=== PATIENT | male | born 1960 | race Hispanic/Latino ===

== ENCOUNTER 2016-12-20 10:22 | Emergency (ER) | payer OTHER ==
[2016-12-20 10:22] VITALS: BMI 32.5
[2016-12-20 10:26] VITALS: TEMP 97.3
[2016-12-20] MEDS ORDERED: Sodium Chloride 0.9% 500 ML IV ONE (11:08)
--- NOTE | 2016-12-20 11:41 | RAD ---
HISTORY: SOB COMPARISON: Chest x-ray performed 04/13/16 TECHNIQUE: Chest, one view. FINDINGS: Examination limited by habitus. LUNGS: Bibasilar atelectasis. Mild pulmonary venous congestion. Please note that chest x-ray has limited sensitivity for the detection of pulmonary masses. PLEURA: No significant pleural effusion identified. No definite pneumothorax . CARDIOVASCULAR: Cardiomegaly. OSSEOUS STRUCTURES: Degenerative changes. VISUALIZED UPPER ABDOMEN: Elevation of the left hemidiaphragm. OTHER FINDINGS: None. IMPRESSION: Bibasilar atelectasis. Mild pulmonary venous congestion. Cardiomegaly.
[2016-12-20 11:58] LABS: BASO # 0.1 K/uL (0.0-0.2); BASO % 1.2 % (0.0-2.0); EOS # 0.1 K/uL (0.0-0.7); EOS % 2.7 % (0.0-4.0); HEMATOCRIT 45.2 % (35.0-51.0); LYMPH # 1.4 K/uL (1.0-4.3); LYMPH % 27.9 % (20.0-40.0); MEAN CELL VOLUME 86.1 fL (80.0-94.0); MEAN CORPUSCULAR HEMOGLOBIN 29.3 pg (27.0-31.0); MEAN PLATELET VOLUME 8.8 fL (7.2-11.7); MONO # 0.4 K/uL (0.0-0.8); MONO % 8.2 % (0.0-10.0); NRBC % 0.4 % (0.0-2.0); RED CELL DISTRIBUTION WIDTH 14.1 % (11.5-14.5)
[2016-12-20 12:01] LABS: RBC URINE 4 /hpf (0-3); URINE BILIRUBIN NEGATIVE (NEGATIVE); URINE BLOOD NEGATIVE (NEGATIVE); URINE COLOR Yellow (YELLOW); URINE GLUCOSE (UA) NORMAL (Normal); URINE KETONE NEGATIVE (NEGATIVE); URINE LEUKOCYTE ESTERASE NEG Leu/uL (Negative); URINE PROTEIN 2+ mg/dL (NEGATIVE); URINE UROBILINOGEN NORMAL mg/dL (0.2-1.0); WBC URINE 2 /hpf (0-5)
[2016-12-20 12:10] LABS: CHLORIDE 96 mmol/L (98-107); POTASSIUM 2.8 mmol/L (3.6-5.2); SODIUM 140 mmol/L (132-148)
[2016-12-20 12:12] LABS: ALB/GLOB RATIO 1.4 (1.0-2.1); AST/SGOT 48 U/L (17-59); BILIRUBIN,TOTAL 1.4 mg/dL (0.2-1.3); CARBON DIOXIDE 31 mmol/L (22-30); GFR AFRICAN-AMERICAN > 60; TOTAL PROTEIN 7.8 g/dL (6.3-8.3)
[2016-12-20 12:13] LABS: ALKALINE PHOSPHATASE 65 U/L (38-126); ALT/SGPT 43 U/L (21-72); BLOOD UREA NITROGEN 13 mg/dL (9-20); CALCIUM 8.7 mg/dl (8.6-10.4); GLUCOSE,RANDOM 87 mg/dL (75-110)
[2016-12-20 12:14] LABS: ALCOHOL SERUM < 10 mg/dl (0-10)
[2016-12-20] MEDS ORDERED: Potassium Chloride 20 mEq ER Tab PO STA (12:49)
--- NOTE | 2016-12-20 12:51 | C.PDOC ---
History Of Present Illness 56-year-old male, PMHx includes Anxiety, CAD, Depression, Deep Vein Thrombosis ( 2 years), Gastrointestinal Ulcer, Hiatal Hernia, Hypertension, and Pulmonary Embolism, presents to the emergency department with complaints of abdominal pain. Patient states she has been experiencing sharp "intense" abdominal pain, associated with nausea and shortness of breath that started yesterday. He states he was taking Eliquis, but stopped two months ago due to "insurance issues" and has been taking daily baby Aspirin instead. In ED, patient reports that symptoms have improved, He denies chest pain, coughing, fever, nausea/ vomiting, diarrhea. Time Seen by Provider: 12/20/16 10:56 Chief Complaint (Nursing): Abdominal Pain History Per: Patient History/Exam Limitations: no limitations Onset/Duration Of Symptoms: Days (1) Current Symptoms Are (Timing): Still Present Severity: Moderate Location Of Pain/Discomfort: Diffuse Past Medical History Reviewed: Historical Data, Nursing Documentation, Vital Signs Vital Signs: Last Vital Signs Temp 97.3 F L 12/20/16 10:25 Pulse 84 12/20/16 13:39 Resp 20 12/20/16 13:39 BP 179/84 H 12/20/16 13:39 Pulse Ox 97 12/20/16 18:03 - Medical History PMH: Anxiety, CAD, Depression, Deep Vein Thrombosis, Gastrointestinal Ulcer, Hiatal Hernia, HTN, Pneumonia, Pulmonary Embolism - [facility] Procedures INFLUENZA VACCINATION (09/04/14) PLICATION OF VENA CAVA (10/08/14) Family History: States: No Known Family Hx - Social History Hx Tobacco Use: No Hx Alcohol Use: No Hx Substance Use: No - Immunization History Hx Tetanus Toxoid Vaccination: No Hx Influenza Vaccination: Yes Hx Pneumococcal Vaccination: Yes Review Of Systems Except As Marked, All Systems Reviewed And Found Negative. Constitutional: Negative for: Fever, Chills Cardiovascular: Negative for: Chest Pain, Palpitations Respiratory: Positive for: Shortness of Breath. Negative for: Cough Gastrointestinal: Positive for: Nausea, Abdominal Pain. Negative for: Vomiting , Diarrhea Genitourinary: Negative for: Dysuria, Frequency, Hematuria Musculoskeletal: Negative for: Back Pain Skin: Negative for: Rash Physical Exam - Physical Exam Appears: Well, Non-toxic, No Acute Distress Skin: Warm, Dry, No Rash Head: Normacephalic Eye(s): bilateral: Normal Inspection Oral Mucosa: Moist Neck: Normal, Normal ROM Cardiovascular: Rhythm Regular, No Murmur Respiratory: Normal Breath Sounds, No Accessory Muscle Use, No Rales, No Rhonchi , No Wheezing Gastrointestinal/Abdominal: Normal Exam, Bowel Sounds, Soft, No Tenderness, No Guarding, No Rebound, Other (Obese) Extremity: Normal ROM, No Pedal Edema, No Calf Tenderness, No Swelling Pulses: Left Dorsalis Pedis: Normal, Right Dorsalis Pedis: Normal Neurological/Psych: Oriented x3 ED Course And Treatment - Laboratory Results Result Diagrams: 12/20/16 11:44 12/20/16 11:44 O2 Sat by Pulse Oximetry: 97 (RA) Pulse Ox Interpretation: Normal - Radiology CXR: Interpreted by Me, Viewed By Me (no infiltrates/effusions) CXR Interpretation: Yes: No Acute Disease - CT Scan/US CT CHEST Other Rad Studies (CT/US): Read By Radiologist, Radiology Report Reviewed CT/US Interpretation: Accession No. : [id number]. Patient Name / ID : PRIYANKA MICHELE / [id number]. Exam Date : 12/20/2016 13:54:20 ( Approved ). Study Comment : Sex / Age : M / 56Y. Creator : Racheal Ahuja MD. Dictator : Racheal Ahuja MD. Hemmer [employer]ch : Client Business Manager : Racheal Ahuja MD. Approver2 : Report Date : 12/20/2016 14:41:38. My Comment : . Angio chest PE protocol. Indication: h/o pe, sob, off eliquis x 2 months. Technique: Contiguous axial images were obtained through the chest with intravenous contrast enhancement. Sagittal and coronal reconstructions were generated and reviewed. This CT exam was performed using 1 or more of the falling dose reduction techniques: Automated exposure control, adjustment of the MAA and/or kV according to patient size, and/or use of iterative reconstruction technique. IV Contrast: 100 mL Visipaque. . Radiation dose ( DLP): 515.40 MGy-cm. Comparison: Chest x-ray performed 12/20/16. Findings: Visualized portions of the inferior thyroid gland appear unremarkable. The mediastinal and hilar vascular structures appear within normal limits. The heart appears within normal limits of size. Coronary artery calcifications. No large central or segmental pulmonary embolus evident. Large left-sided Bochdalek's hernia with associated compressive consolidation. No pleural effusion. No pneumothorax. No suspicious pulmonary nodules measuring greater than 5 mm. Limited visualization of the upper abdomen appears grossly unremarkable. Bilateral gynecomastia. Degenerative changes. Impression: No large central or segmental pulmonary embolus evident. Large left-sided Bochdalek's hernia with associated compressive consolidation. Progress Note: Blood work, CTA Chest, Chest X-Ray and UA/Urine culture ordered. Patient given NS IV bolus, IV pepcid and PO Kdur for hypokalemia Reevaluation Time: 14:55 Reassessment Condition: Improved (On reassessment, patient is resting comfortably, in no current pain or distress. On exam, abdomen is soft and nontender. Blood work significant for hypokalemia, which was given PO. CTA chest (-) for PE, but did show Bochdalek hernia (typically congenital). Patient instructed to follow up with general surgeon within 1 week for further evalation, and with PMD/clinic in 1-2 days for further eval/management of anticoagulants. He understands he should return to ED if symptoms worsen.) Disposition Counseled Patient/Family Regarding: Studies Performed, Diagnosis, Need For Followup, Rx Given - Disposition Referrals: Hi Qiu MD [Staff Provider] - Disposition: HOME/ ROUTINE Disposition Time: 14:55 Condition: STABLE Additional Instructions: FOLLOW UP WITH SURGEON WITHIN 1 WEEK CONTINUE TAKING DAILY ASPIRIN, AND MAKE SURE YOU FOLLOW UP WITH YOUR DOCTOR/ CLINIC FOR FURTHER EVALUATION AND RESTART OF YOUR ELIQUIS RETURN TO ER IF SYMPTOMS WORSEN Prescriptions: Acetaminophen with Codeine [Tylenol with Codeine #3 Tablet] 1 each PO Q6 PRN # 12 tablet PRN Reason: pain Famotidine [Pepcid] 20 mg PO BID PRN #15 tab PRN Reason: abdominal Instructions: Abdominal Pain (ED) Print Language: AMERICAN - POA Present On Arrival: None - Clinical Impression Clinical Impression: Abdominal pain, Bochdalek hernia - Scribe Statement The provider has reviewed the documentation as recorded by the Scribe 56-year-old male, presents to the emergency department with complaints of
[2016-12-20] MEDS ORDERED: Sodium Chloride 0.9% 1,000 ML ONE (12:52)
[2016-12-20] MEDS ORDERED: Iodixanol 320 MG/ML 100 ML BOTTLE IV ONE (13:13)
[2016-12-20] MEDS ORDERED: Potassium Chloride 20 mEq ER Tab PO ONE (13:23)
[2016-12-20 13:27] LABS: INR 1.1
[2016-12-20 13:41] VITALS: BP 179/84; PULSE 84; RESP 20
--- NOTE | 2016-12-20 14:43 | CT ---
Angio chest PE protocol Indication: h/o pe, sob, off eliquis x 2 months Technique: Contiguous axial images were obtained through the chest with intravenous contrast enhancement. Sagittal and coronal reconstructions were generated and reviewed. This CT exam was performed using 1 or more of the falling dose reduction techniques: Automated exposure control, adjustment of the MAA and/or kV according to patient size, and/or use of iterative reconstruction technique. IV Contrast: 100 mL Visipaque Radiation dose (DLP): 515.40 MGy-cm. Comparison: Chest x-ray performed 12/20/16 Findings: Visualized portions of the inferior thyroid gland appear unremarkable. The mediastinal and hilar vascular structures appear within normal limits. The heart appears within normal limits of size. Coronary artery calcifications. No large central or segmental pulmonary embolus evident. Large left-sided Bochdalek's hernia with associated compressive consolidation. No pleural effusion. No pneumothorax. No suspicious pulmonary nodules measuring greater than 5 mm. Limited visualization of the upper abdomen appears grossly unremarkable. Bilateral gynecomastia. Degenerative changes. Impression: No large central or segmental pulmonary embolus evident. Large left-sided Bochdalek's hernia with associated compressive consolidation.
[2016-12-20 14:59] VITALS: O2SAT 97
== END 2016-12-20 15:22 | disposition home or self-care (01) ==
LOC: C.ER 10:22
DX: R10.9 Unspecified abdominal pain (principal); K46.9 Unspecified abdominal hernia without obstruction or gangrene
CPT/HCPCS: 71010; 71275; 80053; 80320; 80324; 80345; 80346; 80349; 80353; 80358; 80361; 81001; 83690; 83992; 85025; 85610; 85730; 87086; 96361; 96374; 99285; J7040; Q9967

== ENCOUNTER 2017-04-19 19:54 | Emergency (ER) | payer MEDICARE, OTHER ==
[2017-04-19 19:54] VITALS: BMI 32.5
[2017-04-19 20:11] VITALS: TEMP 97.9
--- NOTE | 2017-04-19 21:23 | C.PDOC ---
History Of Present Illness 57 year old male with a Hx of depression, anxiety, schizophrenia, HTN, PE, and DVT who presents to the ER with a complaint of chest, ribs, and leg pain since approximately 12:00. Patient describes the pain to his chest as an 7/10 aching/ tightness and the pain to his legs as an 8/10 pressure/cramping pain. Patient states he did not take anything for the pain but admits to cocaine use at 13:00 and ETOH use earlier today. Denies fever, palpitations, diaphoresis, nausea, vomiting, diarrhea, constipation, or change in vision. Time Seen by Provider: 04/19/17 20:22 Chief Complaint (Nursing): Chest Pain History Per: Patient History/Exam Limitations: no limitations Onset/Duration Of Symptoms: Hrs Current Symptoms Are (Timing): Still Present Pain Scale Rating Of: 7 Quality: Aching, Tightness, Pressure Associated Symptoms: denies: Nausea, Dyspnea, Diaphoresis Modifying Factors: None Exacerbating Factors: None Alleviating Factors: None Recent travel outside of the [place]: No Past Medical History Reviewed: Historical Data, Nursing Documentation, Vital Signs Vital Signs: Last Vital Signs Temp 97.9 F 04/19/17 20:06 Pulse 71 04/19/17 23:24 Resp 18 04/19/17 23:24 BP 130/82 04/19/17 23:24 Pulse Ox 95 04/20/17 00:14 - Medical History PMH: Anxiety, CAD, Depression, Deep Vein Thrombosis, Gastrointestinal Ulcer, Hiatal Hernia, HTN, Pneumonia, Pulmonary Embolism - [facility] Procedures INFLUENZA VACCINATION (09/04/14) PLICATION OF VENA CAVA (10/08/14) Family History: States: Unknown Family Hx - Social History Hx Tobacco Use: No Hx Alcohol Use: No Hx Substance Use: No - Immunization History Hx Tetanus Toxoid Vaccination: No Hx Influenza Vaccination: No Hx Pneumococcal Vaccination: No Review Of Systems Constitutional: Negative for: Fever, Sweats Eyes: Negative for: Vision Change Cardiovascular: Negative for: Palpitations Gastrointestinal: Negative for: Nausea, Vomiting, Diarrhea, Constipation Physical Exam - Physical Exam Appears: Non-toxic Skin: Normal Color, Warm, Dry Head: Atraumatic, Normacephalic Oral Mucosa: Moist Chest: Symmetrical, No Tenderness Cardiovascular: Rhythm Regular, No Murmur Respiratory: Normal Breath Sounds, No Rales, No Rhonchi, No Wheezing Gastrointestinal/Abdominal: Bowel Sounds (Active), Soft, No Tenderness Extremity: Normal ROM (x4) Neurological/Psych: Oriented x3, Normal Speech, Normal Cognition ED Course And Treatment - Laboratory Results Result Diagrams: 04/19/17 21:34 04/19/17 21:21 Lab Interpretation: Abnormal (Low K+ and Mg. Patient states that he has been on K+ supplememts but stopped them because of side effects.) O2 Sat by Pulse Oximetry: 95 (Room air) Pulse Ox Interpretation: Normal - Radiology CXR: Interpreted by Me CXR Interpretation: Yes: No Acute Disease, Other (large hiatal hernia with atelectasis LLL) - CT Scan/US CTA Other Rad Studies (CT/US): Read By Radiologist, Radiology Report Reviewed CT/US Interpretation: EXAM: CT Angiography Chest With Intravenous Contrast. CLINICAL HISTORY: 57 years old, male; Pain; Chest pain; Patient HX: 12-20-16; Additional info: Chest pain, elevated d. dimer, HX pe. TECHNIQUE: Axial computed tomographic angiography images of the chest with intravenous contrast using. pulmonary embolism protocol. All CT scans at this facility use one or more dose reduction. techniques, viz.: automated exposure control; ma/kV adjustment per patient size (including targeted. exams where dose is matched to indication; i.e. head); or iterative reconstruction technique. MIP reconstructed images were created and reviewed. Coronal and sagittal reformatted images were created and reviewed. CONTRAST: 100 mL of [id number] administered intravenously. COMPARISON: CT - ANGIO CHEST PE PROTOCOL 12/20/2016 1:54:20 PM. FINDINGS: Limitations: Motion artifact - mild. Pulmonary arteries: No definite pulmonary embolism. Aorta: No aneurysm. No dissection. Lungs: Mild peripheral consolidation LEFT lower lobe. Minimal peripheral consolidation LEFT. upper, RIGHT lower lobes. Pleural space: No significant effusion. No pneumothorax. Heart: Mild cardiomegaly. No significant pericardial effusion. Mediastinum: Large hiatal hernia. Bones/ joints: No acute fracture. No dislocation. Soft tissues: Mild gynecomastia. Lymph nodes: No pathologically enlarged lymph nodes. Liver: Fatty infiltration. IMPRESSION: 1. No definite CT evidence of pulmonary embolism. 2. Peripheral atelectasis. Superimposed pneumonia within LEFT lower lobe not entirely excluded. 3. Incidental/non-acute findings are described above. Progress Note: EKG, blood work, CXR, and urinalysis ordered. Reevaluation Time: 00:17 Reassessment Condition: Improved (Patient sleeping quietly on stretcher.) Disposition - Disposition Disposition: HOME/ ROUTINE Disposition Time: 00:18 Condition: STABLE Additional Instructions: Patient advised to speak with his doctor about stopping the Protonix to avoid persistent hypokalemia. Instructions: Hiatal Hernia (ED), Hypokalemia (ED), Hypomagnesemia (ED) Forms: [employer] (Albanian) - Clinical Impression Clinical Impression: Leg pain, Chest discomfort, Hiatal hernia, Hypokalemia, Hypomagnesemia - Scribe Statement The provider has reviewed the documentation as recorded by the Scribe Nicholas Stauffer All medical record entries made by the Giftyibhubert were at my direction and personally dictated by me. I have reviewed the chart and agree that the record accurately reflects my personal performance of the history, physical exam, medical decision making, and the department course for this patient. I have also personally directed, reviewed, and agree with the discharge instructions and disposition.
[2017-04-19 21:34] LABS: CHLORIDE 103 mmol/L (98-107); SODIUM 144 mmol/L (132-148)
[2017-04-19 21:35] LABS: POTASSIUM 2.7 mmol/L (3.6-5.2)
[2017-04-19 21:36] LABS: GFR AFRICAN-AMERICAN > 60
[2017-04-19 21:37] LABS: ALB/GLOB RATIO 1.4 (1.0-2.1); ALKALINE PHOSPHATASE 47 U/L (38-126); ALT/SGPT 35 U/L (21-72); AST/SGOT 44 U/L (17-59); BILIRUBIN,TOTAL 1.1 mg/dL (0.2-1.3); BLOOD UREA NITROGEN 20 mg/dL (9-20); CALCIUM 9.1 mg/dl (8.6-10.4); CARBON DIOXIDE 23 mmol/L (22-30); GLUCOSE,RANDOM 82 mg/dL (75-110); TOTAL PROTEIN 7.5 g/dL (6.3-8.3)
[2017-04-19 21:38] LABS: ALCOHOL SERUM 75 mg/dl (0-10); MAGNESIUM 1.5 mg/dL (1.6-2.3)
[2017-04-19 21:42] LABS: BASO # 0.1 K/uL (0.0-0.2); BASO % 1.1 % (0.0-2.0); EOS # 0.1 K/uL (0.0-0.7); EOS % 1.4 % (0.0-4.0); HEMATOCRIT 39.1 % (35.0-51.0); LYMPH % 20.4 % (20.0-40.0); MEAN CELL VOLUME 86.8 fL (80.0-94.0); MEAN CORPUSCULAR HEMOGLOBIN 30.2 pg (27.0-31.0); MEAN CORPUSCULAR HGB CONC 34.7 g/dL (33.0-37.0); MEAN PLATELET VOLUME 7.8 fL (7.2-11.7); MONO # 0.8 K/uL (0.0-0.8); MONO % 7.5 % (0.0-10.0); NRBC % 0.2 % (0.0-2.0); RED CELL DISTRIBUTION WIDTH 14.1 % (11.5-14.5)
[2017-04-19] MEDS ORDERED: Potassium Chloride 20 mEq ER Tab PO STA (21:50)
[2017-04-19] MEDS ORDERED: Magnesium Sulfate 1 gm in D5W 1 GM/100 ML BAG IV ONE (21:51)
[2017-04-19] MEDS ORDERED: Potassium Chloride 20 mEq ER Tab PO ONE (22:03)
[2017-04-19] MEDS ORDERED: Magnesium Sulfate 1 gm in D5W 1 GM/100 ML BAG IVPB ONE (22:03)
[2017-04-19] MEDS ORDERED: Iodixanol 320 MG/ML 100 ML BOTTLE IV ONE (22:14)
[2017-04-19 22:28] LABS: RBC URINE < 1 /hpf (0-3); URINE BACTERIA RARE (<OCC); URINE BILIRUBIN NEGATIVE (NEGATIVE); URINE BLOOD NEGATIVE (NEGATIVE); URINE COLOR Yellow (YELLOW); URINE GLUCOSE (UA) NORMAL (Normal); URINE KETONE NEGATIVE (NEGATIVE); URINE LEUKOCYTE ESTERASE NEG Leu/uL (Negative); URINE PROTEIN NEGATIVE (NEGATIVE); URINE UROBILINOGEN NORMAL mg/dL (0.2-1.0); WBC URINE 1 /hpf (0-5)
[2017-04-19 22:45] VITALS: RESP 18
[2017-04-19 23:25] VITALS: PULSE 71
--- NOTE | 2017-04-19 23:33 | CT ---
EXAM: CT Angiography Chest With Intravenous Contrast CLINICAL HISTORY: 57 years old, male; Pain; Chest pain; Patient HX: 12-20-16; Additional info: Chest pain, elevated d dimer, HX pe TECHNIQUE: Axial computed tomographic angiography images of the chest with intravenous contrast using pulmonary embolism protocol. All CT scans at this facility use one or more dose reduction techniques, viz.: automated exposure control; ma/kV adjustment per patient size (including targeted exams where dose is matched to indication; i.e. head); or iterative reconstruction technique. MIP reconstructed images were created and reviewed. Coronal and sagittal reformatted images were created and reviewed. CONTRAST: 100 mL of [id number] administered intravenously. COMPARISON: CT - ANGIO CHEST PE PROTOCOL 12/20/2016 1:54:20 PM FINDINGS: Limitations: Motion artifact - mild. Pulmonary arteries: No definite pulmonary embolism. Aorta: No aneurysm. No dissection. Lungs: Mild peripheral consolidation LEFT lower lobe. Minimal peripheral consolidation LEFT upper, RIGHT lower lobes. Pleural space: No significant effusion. No pneumothorax. Heart: Mild cardiomegaly. No significant pericardial effusion. Mediastinum: Large hiatal hernia. Bones/joints: No acute fracture. No dislocation. Soft tissues: Mild gynecomastia. Lymph nodes: No pathologically enlarged lymph nodes. Liver: Fatty infiltration. IMPRESSION: 1. No definite CT evidence of pulmonary embolism. 2. Peripheral atelectasis. Superimposed pneumonia within LEFT lower lobe not entirely excluded. 3. Incidental/non-acute findings are described above.
[2017-04-19 23:49] VITALS: O2SAT 95
[2017-04-20 00:30] VITALS: BP 136/84
--- NOTE | 2017-04-20 09:39 | RAD ---
PROCEDURE: CHEST RADIOGRAPH, 1 VIEW HISTORY: Shortness of breath COMPARISON: None available. FINDINGS: LUNGS: Elevated left hemidiaphragm. Consolidative changes and/or atelectasis at the left lung base. Mild venous congestion. PLEURA: No pneumothorax or pleural fluid seen. CARDIOVASCULAR: Cardiomegaly. OSSEOUS STRUCTURES: No significant abnormalities. VISUALIZED UPPER ABDOMEN: Normal. OTHER FINDINGS: None. IMPRESSION: Elevated left hemidiaphragm. Consolidative changes and/or atelectasis at the left lung base. Mild venous congestion.
--- NOTE | 2017-04-20 12:31 | CARD ---
APPROVED REPORT EKG Measurement Heart [id number] <Conclusion> Sinus tachycardia Left ventricular hypertrophy with repolarization abnormality Prolonged QT Abnormal ECG
== END 2017-04-20 00:39 | disposition home or self-care (01) ==
LOC: C.ER 19:54
DX: R07.89 Other chest pain (principal); M79.606 Pain in leg, unspecified; E87.6 Hypokalemia; E83.42 Hypomagnesemia; K44.9 Diaphragmatic hernia without obstruction or gangrene
CPT/HCPCS: 71010; 71275; 80053; 81001; 83735; 84484; 85025; 85378; 93005; 96365; 96375; 99285; G0480; J1885; J3475; Q9967